=== PATIENT | female | born 1960 | race Caucasian/White ===

== ENCOUNTER → 2020-08-04 10:29 | Outpatient (BNVA) | payer OTHER, SELFPAY | PROVIDERS: PCP Internal Medicine Endocrinology, Diabetes & Metabolism; Referring Provider Internal Medicine Endocrinology, Diabetes & Metabolism; Visit Provider Surgery | DX: Z76.89 Persons encountering health services in other specified circumstances (principal) ==

== ENCOUNTER 2021-03-09 13:18 | Outpatient (REF) | payer OTHER, SELFPAY ==
[2021-03-09 14:03] LABS: Blood Urea Nitrogen 15 mg/dL (9-16); Estimated Glomerular Filt Rate 58
== END 2021-03-09 13:19 | disposition home or self-care (01) ==
LOC: HO.MRI 13:18
PROVIDERS: PCP Internal Medicine Endocrinology, Diabetes & Metabolism; Visit Provider Surgery
DX: Z01.812 Encounter for preprocedural laboratory examination (principal); Z80.3 Family history of malignant neoplasm of breast
CPT/HCPCS: 36415; 82565; 84520

== ENCOUNTER → 2021-08-17 09:03 | Outpatient (BNVA) | payer OTHER, SELFPAY | PROVIDERS: PCP Internal Medicine Endocrinology, Diabetes & Metabolism; Visit Provider Surgery ==

== ENCOUNTER → 2021-08-26 10:21 | Outpatient (BNVA) | payer OTHER, SELFPAY | PROVIDERS: PCP Internal Medicine Endocrinology, Diabetes & Metabolism; Visit Provider Surgery ==

== ENCOUNTER → 2021-10-14 10:31 | Outpatient (BNVA) | payer OTHER, SELFPAY | PROVIDERS: PCP Internal Medicine Endocrinology, Diabetes & Metabolism; Visit Provider Surgery ==

== ENCOUNTER → 2021-12-16 14:07 | Outpatient (BNVA) | payer OTHER, SELFPAY | PROVIDERS: PCP Internal Medicine Endocrinology, Diabetes & Metabolism; Visit Provider Surgery | DX: Z13.89 Encounter for screening for other disorder (principal) ==

== ENCOUNTER → 2022-08-18 10:05 | Outpatient (BNVA) | payer OTHER, SELFPAY | PROVIDERS: PCP Internal Medicine Endocrinology, Diabetes & Metabolism; Visit Provider Surgery | DX: Z80.3 Family history of malignant neoplasm of breast (principal) ==

== ENCOUNTER 2023-08-25 11:16 | Outpatient (AMB) | payer OTHER, SELFPAY ==
--- NOTE | 2023-08-25 11:35 | MHC.OFFVIS ---
Intake Vital Signs 08/25/23 11:36 Height 5 ft 9 in Weight 283 lb BMI 41.8 BP 140/80 H Blood Pressure Location Lt brachial Position Sitting Pulse 64 Intake Visit Reasons: Yearly breast examination Intake Note: Patient is seen in office for yearly breast exam. Pt c/o: denies any concerns regarding the breast mm:08/18/23 Private Advisor Required: No Accompanied by: Self / Same As Patient Allergies Biaxin Allergy (Unknown, Uncoded 08/18/22 10:19) Vomiting HPI HPI Comments History of Present Illness Details 63-year-old female patient previous patient of Dr. Fletcher and Dr. Mendez or felt to be high risk for breast cancer due to a strong [facility] calculated at 28%. 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 Her family history is significant for her mother developing breast cancer the age of 69, and maternal aunt at the age of 59, and a paternal aunt at the age of 50. Her last mammogram performed [facility] on 10/07/2022 revealed no mammographic evidence of malignancy (BI-RADS 2). Breast MRI on 08/18/2023 ([place]) revealed no MR specific evidence of malignancy (BI-RADS 2). She denies any new breast symptoms. [facility] Medical History Family history of breast cancer Diabetes mellitus type 1 GERD (gastroesophageal reflux disease) Thyroid disease Hypercholesterolemia Surgical History History of appendectomy History of right breast biopsy History of hysterectomy History of bilateral knee arthroplasty Family History Mother Lung cancer Breast cancer Throat cancer Maternal Grandfather Lung cancer Paternal Aunt Breast cancer Maternal Aunt Breast cancer Maternal Aunt Breast cancer Social History Alcohol intake: current Alcohol intake frequency: holidays/special occasions only Patient Tobacco Use Status: Never used Tobacco Female Reproductive History Menstrual Age of Menarche: 11 Review of Systems Const Denies chills, Denies fever(s), Denies headache(s) and Denies poor appetite ENT Denies dizziness and Denies headache(s) Card Denies chest pain, Denies rapid heart rate, Denies palpitations and Denies slow heart rate Resp Denies chest congestion, Denies cough, Denies pain on inspiration and Denies wheezing GI Denies abdominal pain, Denies bloating, Denies change in stool character, Denies constipation, Denies diarrhea, Denies nausea, Denies vomiting and Denies hematemesis Denies nipple discharge Musc Denies back pain, Denies arthralgias, Denies joint swelling and Denies numbness Skin/Breast Denies breast skin changes, Denies breast pain, Denies breast mass, Denies change in breast shape, Denies change in pigmentation, Denies nipple discharge, Denies erythema and Denies rash Neuro Denies dizziness, Denies headache(s) and Denies numbness Psych Denies anxiety and Denies depression Endo Denies palpitations Carlos A/Lymph Denies easy bleeding, Denies easy bruising and Denies lymphadenopathy Aller/Immun Denies wheezing Physical Exam Const General: cooperative, no acute distress and well developed Nutritional Appearance: well nourished Orientation/consciousness: patient oriented x3 Limitations: no limitations HEENT Head: Yes normocephalic and Yes atraumatic Ears: hearing grossly normal bilaterally Neck Neck: Yes no lymphadenopathy, Yes trachea midline and Yes supple Chest Other: Left breast:? No skin change, no nipple retraction, no nipple discharge, no palpable mass, no enlarged lymph nodes. Right breast:? No skin change, no nipple retraction, no nipple discharge, no palpable mass, no enlarged lymph nodes Resp Effort & Inspection: normal respiratory effort Auscultation: clear to auscultation bilaterally GI Inspection: Yes normal to inspection Skin General skin exam: no rashes or lesions noted Neuro General: patient oriented x3 Extrem General: Yes no clubbing, cyanosis or edema Assessment & Plan Assessment & Plan (1) Family history of breast cancer: Code(s): Z80.3 - Family history of malignant neoplasm of breast Plan 63-year-old female patient with a strong family history of breast cancer and elevated Tyrer-Cuzick remaining lifetime risk of breast cancer, continues to be followed as part of the high risk breast cancer protocol. Examination today revealed no suspicious findings in either breast. Her most recent mammogram and breast MRIs revealed no suspicious findings as well. 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 She will follow-up with the [facility] family cancer risk program. I have asked her to return in 6 months for follow-up breast examination. She should call sooner for any new concerns. Coding Level of Care Code Est Pt Level 3 (50226) Diagnoses Family history of breast cancer Z80.3
[2023-08-25 11:36] VITALS: BP 140/80; PULSE 64; BMI 41.8
== END 2023-08-25 11:54 | disposition home or self-care (01) ==
PROVIDERS: PCP Internal Medicine Endocrinology, Diabetes & Metabolism; Visit Provider Surgery
DX: Z80.3 Family history of malignant neoplasm of breast (principal)
CPT/HCPCS: 99213

== ENCOUNTER → 2023-08-25 11:16 | Outpatient (BNVA) | payer OTHER, SELFPAY | PROVIDERS: PCP Internal Medicine Endocrinology, Diabetes & Metabolism; Visit Provider Surgery ==

== ENCOUNTER 2024-03-05 11:48 | Outpatient (AMB) | payer OTHER, SELFPAY ==
--- NOTE | 2024-03-05 11:48 | A.OFFVIS_ITS ---
Vital Signs 03/05/24 11:54 Height 5 ft 9 in Weight 277 lb BMI 40.9 BP 170/80 H Blood Pressure Location Lt radial Position Sitting Pulse 60 Intake Visit Reasons: 6 month follow-up breast exam Intake Note: Pt is seen in office for 6 month follow up visit, breast exam. Pt c/o: denies any concenrs mm: 01/12/24 Mapping Supervisor Required: No Cableway Operator: Cableway Operator Present Accompanied by: Self / Same As Patient Allergies Biaxin Allergy (Unknown, Uncoded 08/18/22 10:19) Vomiting Medication List - Last Reconciled 03/05/24 by Alex Maya MD albuterol sulfate 90 mcg/actuation inhalation aspirin (Adult Low Dose Aspirin) 81 mg PO DAILY atorvastatin 10 mg PO BEDTIME beclomethasone dipropionate 80 mcg/actuation inhalation blood sugar diagnostic As directed cholecalciferol (vitamin D3) 25 mcg PO DAILY furosemide 20 mg PO DAILY insulin lispro 70 units subcut DAILY insulin syringe-needle U-100 As directed levothyroxine 112 mcg PO DAILY lisinopril 10 mg PO DAILY metoprolol succinate ER 50 mg PO DAILY omeprazole 40 mg PO DAILY venlafaxine ER 37.5 mg PO QAM HPI Comments Details: 64-year-old female patient previous patient of Dr. Fletcher and Dr. Mendez or felt to be high risk for breast cancer due to a strong family history with a Tyrer-Cuzick lifetime risk of breast cancer calculated at 28%. 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 Her family history is significant for her mother developing breast cancer the age of 69, and maternal aunt at the age of 59, and a paternal aunt at the age of 50. Her last mammogram 01/12/2024 revealed no mammographic evidence of malignancy (BI-RADS 1). Her last MRI performed on 08/18/2023 revealed no MR specific evidence of malignancy (BI- RADS 2). She will be due for an annual breast MRI in July of 2024 ([place]). She denies any new breast symptoms. [facility] Medical History Family history of breast cancer Diabetes mellitus type 1 GERD (gastroesophageal reflux disease) Thyroid disease Hypercholesterolemia Surgical History History of appendectomy History of right breast biopsy History of hysterectomy History of bilateral knee arthroplasty Family History Mother Lung cancer Breast cancer Throat cancer Maternal Grandfather Lung cancer Paternal Aunt Breast cancer Maternal Aunt Breast cancer Maternal Aunt Breast cancer Social History Alcohol intake: current Alcohol intake frequency: holidays/special occasions only Patient Tobacco Use Status: Never used Tobacco Female Reproductive History Menstrual Age of Menarche: 11 Review of Systems Const Denies chills, Denies fever(s), Denies headache(s) and Denies poor appetite ENT Denies dizziness and Denies headache(s) Card Denies chest pain, Denies rapid heart rate, Denies palpitations and Denies slow heart rate Resp Denies chest congestion, Denies cough, Denies pain on inspiration and Denies wheezing GI Denies abdominal pain, Denies bloating, Denies change in stool character, Denies constipation, Denies diarrhea, Denies nausea, Denies vomiting and Denies hematemesis Denies nipple discharge Musc Denies back pain, Denies arthralgias, Denies joint swelling and Denies numbness Skin/Breast Denies breast skin changes, Denies breast pain, Denies breast mass, Denies change in breast shape, Denies change in pigmentation, Denies nipple discharge, Denies erythema and Denies rash Neuro Denies dizziness, Denies headache(s) and Denies numbness Psych Denies anxiety and Denies depression Endo Denies palpitations Carlos A/Lymph Denies easy bleeding, Denies easy bruising and Denies lymphadenopathy Aller/Immun Denies wheezing Physical Exam Const General: cooperative, no acute distress and well developed Nutritional Appearance: well nourished Orientation/consciousness: patient oriented x3 Limitations: no limitations HEENT Head: Yes normocephalic and Yes atraumatic Ears: hearing grossly normal bilaterally Neck Neck: Yes no lymphadenopathy, Yes trachea midline and Yes supple Chest Other: Left breast:? No skin change, no nipple retraction, no nipple discharge, no palpable mass, no enlarged lymph nodes. Right breast:? No skin change, no nipple retraction, no nipple discharge, no palpable mass, no enlarged lymph nodes Resp Effort & Inspection: normal respiratory effort Auscultation: clear to auscultation bilaterally GI Inspection: Yes normal to inspection Skin General skin exam: no rashes or lesions noted Neuro General: patient oriented x3 Extrem General: Yes no clubbing, cyanosis or edema Assessment & Plan Assessment & Plan (1) Family history of breast cancer: Code(s): Z80.3 - Family history of malignant neoplasm of breast Category: Medical Plan 64-year-old female patient with a strong family history of breast cancer and elevated Tyrer-Cuzick remaining lifetime risk of breast cancer, continues to be followed as part of the high risk breast cancer protocol. Examination today revealed no suspicious findings in either breast. Her most recent mammogram and breast MRIs revealed no suspicious findings as well. 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 I have asked her to return in 6 months for follow-up breast examination. She should call sooner for any new concerns. Coding Level of Care Code Est Pt Level 3 (97510) Diagnoses Family history of breast cancer Z80.3
[2024-03-05 11:54] VITALS: BP 170/80; PULSE 60; BMI 40.9
== END 2024-03-05 12:34 | disposition home or self-care (01) ==
PROVIDERS: PCP Internal Medicine Endocrinology, Diabetes & Metabolism; Visit Provider Surgery
DX: Z80.3 Family history of malignant neoplasm of breast (principal)
CPT/HCPCS: 99213

== ENCOUNTER → 2024-03-05 11:48 | Outpatient (BNVA) | payer OTHER, SELFPAY | PROVIDERS: PCP Internal Medicine Endocrinology, Diabetes & Metabolism; Visit Provider Surgery ==

== ENCOUNTER 2024-11-19 13:36 | Outpatient (AMB) | payer OTHER, SELFPAY ==
[2024-11-19 13:38] VITALS: BP 134/64; PULSE 67; O2SAT 97; BMI 38.9
--- NOTE | 2024-11-19 13:38 | A.OFFVIS_ITS ---
Vital Signs 11/19/24 13:38 Height 5 ft 9 in Weight 263 lb 3.711 oz BMI 38.9 BP 134/64 Blood Pressure Location Lt brachial Position Sitting Pulse 67 Pulse Source Pulse Oximeter Pulse Oximetry (%) 97 Oxygen Delivery Method Room Air Intake Visit Reasons: overdue 6 month Breast exam appt Intake Note: Patient is seen in office for breast exam. Pt cc:None mm:01/11/25 Allergies Biaxin Allergy (Unknown, Uncoded 11/19/24 13:40) Vomiting HPI Comments Details: 64-year-old female patient previous patient of Dr. Fletcher and Dr. Mendez or felt to be high risk for breast cancer due to a strong family history with a Tyrer-zick lifetime risk of breast cancer calculated at 28%. 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 Her family history is significant for her mother developing breast cancer the age of 69, and maternal aunt at the age of 59, and a paternal aunt at the age of 50. 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 Her last mammogram 01/12/2024 revealed no mammographic evidence of malignancy (BI-RADS 1). Her last MRI performed on 08/18/2023 revealed no MR specific evidence of malignancy (BI-RADS 2). She denies any new breast symptoms. [facility] Medical History Family history of breast cancer Diabetes mellitus type 1 GERD (gastroesophageal reflux disease) Thyroid disease Hypercholesterolemia Surgical History History of appendectomy History of right breast biopsy History of hysterectomy History of bilateral knee arthroplasty Family History Mother Lung cancer Breast cancer Throat cancer Maternal Grandfather Lung cancer Paternal Aunt Breast cancer Maternal Aunt Breast cancer Maternal Aunt Breast cancer Social History Alcohol intake: current Alcohol intake frequency: holidays/special occasions only Patient Tobacco Use Status: Never used Tobacco Female Reproductive History Menstrual Age of Menarche: 11 Review of Systems Const Denies chills, Denies fever(s), Denies headache(s) and Denies poor appetite ENT Denies dizziness and Denies headache(s) Card Denies chest pain, Denies rapid heart rate, Denies palpitations and Denies slow heart rate Resp Denies chest congestion, Denies cough, Denies pain on inspiration and Denies wheezing GI Denies abdominal pain, Denies bloating, Denies change in stool character, Denies constipation, Denies diarrhea, Denies nausea, Denies vomiting and Denies hematemesis Denies nipple discharge Musc Denies back pain, Denies arthralgias, Denies joint swelling and Denies numbness Skin/Breast Denies breast skin changes, Denies breast pain, Denies breast mass, Denies change in breast shape, Denies change in pigmentation, Denies nipple discharge, Denies erythema and Denies rash Neuro Denies dizziness, Denies headache(s) and Denies numbness Psych Denies anxiety and Denies depression Endo Denies palpitations Carlos A/Lymph Denies easy bleeding, Denies easy bruising and Denies lymphadenopathy Aller/Immun Denies wheezing Physical Exam Const General: cooperative, no acute distress and well developed Nutritional Appearance: well nourished Orientation/consciousness: patient oriented x3 Limitations: no limitations HEENT Head: Yes normocephalic and Yes atraumatic Ears: hearing grossly normal bilaterally Neck Neck: Yes no lymphadenopathy, Yes trachea midline and Yes supple Chest Other: Left breast:? No skin change, no nipple retraction, no nipple discharge, no palpable mass, no enlarged lymph nodes. Right breast:? No skin change, no nipple retraction, no nipple discharge, no palpable mass, no enlarged lymph nodes Resp Effort & Inspection: normal respiratory effort Auscultation: clear to auscultation bilaterally GI Inspection: Yes normal to inspection Skin General skin exam: no rashes or lesions noted Neuro General: patient oriented x3 Extrem General: Yes no clubbing, cyanosis or edema Assessment & Plan Assessment & Plan (1) Family history of breast cancer: Code(s): Z80.3 - Family history of malignant neoplasm of breast Category: Medical Plan 64-year-old female patient with a strong family history of breast cancer and elevated Tyrer-Cuzick remaining lifetime risk of breast cancer, continues to be followed as part of the high risk breast cancer protocol. Examination today revealed no suspicious findings in either breast. Her most recent mammogram and breast MRIs revealed no suspicious findings as well. 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 I recommended obtaining a breast MRI now. I have asked her to return in 6 months for follow-up breast examination. She should call sooner for any new concerns. Orders: Orders MR breast BI wo/w con Today Z15.01 - Genetic susceptibility to malignant neop lasm of breast, Z15.09 - Genetic susceptibility to other malignant neoplasm, Z91.89 - Other specified personal risk factors, not elsewhere classified Coding Level of Care Code Est Pt Level 3 (02092) Diagnoses Family history of breast cancer Z80.3
--- OUTSIDE RECORDS SUMMARY | 2024-11-19 16:11 | XMS_ITS | Encounter Summary ---
Author Organization [facility] Address [address] [place] [address] Care Team Providers Care Typewriter Mechanic Name Role Phone Jeremi Hubbard MD Primary Care Provider [phone] Reason for Visit * Reason Onset Date Comments visit notes 11/18/2024 Encounter Details Date Type Department Care Team ([facility] st Contact Info) Description 11/18/2024 Telephone [facility] - [facility] [address] [facility] [address] [place] [id number] Teri Mosher MD [address] [place], [place] [id number] visit notes Social History Tobacco Use Types Packs/Day Years Used Date Smoking Tobacco: Never Smokeless Tobacco: Never Alcohol Use Standard Drinks/Week Comments Yes 0 (1 standard drink = 0.6 oz pur e alcohol) Comments Unknown Sex and Gender Information Value Date Recorded Sex Assigned at Not on file Legal Sex Female 2:58 PM EST Gender Identity Not on file Sexual Orientation Not on file documented as of this encounter Progress Notes * Valentin Weaver - 11/18/2024 2:54 PM EDT Flor from [facility] called today to request the results of the patients 11/12/24 stress test be faxed over to [phone]. If there are any questions please call Flor back at [phone] . documented in this encounter Plan of Treatment Upcoming Encounters Date Type Department Care Team (Late st Contact Info) Description 04/17/2025 3:30 PM EDT Office Visit [facility] - [facility] [address] [facility] [address] [place] [phone] Teri Mosher MD [address] [place] [address] documented as of this encounter Visit Diagnoses Not on filedocumented in this encounter Care Teams Typewriter Mechanic Relationship Specialty Start Date End Date Jeremi Hubbard MD [address] [place] [address] Dr [address] [place] [phone] PCP - General Endocrinology 11/18/13 documented as of this encounter
--- OUTSIDE RECORDS SUMMARY | 2024-11-19 16:11 | XMS_ITS | Clinical Summary ---
Author Organization [address] [place] [address] Address [address] [place] [address] Phone Care Team Providers Care Agricultural Chemicals Inspector Name Role Phone Jeremi Hubbard MD Primary Care Provider [phone] Allergies Active Allergy Reactions Criticality Noted Date Comments Clarithromycin 10/17/2022 Medications insulin NPH-insulin regular (HumuLIN 70/30 U-100 Insulin) 100 unit/mL (70-30) injection Inject into the skin daily. Active atorvastatin (LIPITOR) 40 mg tablet Take 1 Tablet by mouth daily. Active levothyroxine (SYNTHROID, LEVOTHROID) 112 mcg tablet 112 mcg daily. Active lisinopriL (PRINIVIL,ZESTRI L) 10 mg tablet Take 10 mg by mouth daily. Active furosemide (LASIX) 20 mg tablet Take 20 mg by mouth daily. Active metoprolol succinate (TOPROL-XL) 50 mg 24 hr tablet Take 50 mg by mouth daily. Active omeprazole (PriLOSEC) [address] capsule Take 40 mg by mouth daily. Active venlafaxine (EFFEXOR) 75 mg tablet Take 75 mg by mouth daily. Active aspirin 81 mg chewable tablet Take 81 mg by mouth daily. Active cholecalciferol (VITAMIN D-3) 25 mcg (1,000 unit) capsule Take by mouth. Active Hospital, Clinic, or Other Facility Administered Medication Ordered Dose Route Frequency Start Date End Date Status perflutren lipid microsphere (DEFINITY) 1.3 mL in sodium chloride 0.9% 8.7 mL injection 10 mL IV Once in imaging 11/12/2024 11/12/2024 End ed Active Problems Problem Noted Date Diagnosed Date CAD (coronary artery disease) 10/17/2022 Overview (10/17/2024): - Presumed diagnosis based on stress testing - Exercise nuclear stress test performed on 12/21/2021: Patient exercised for 5 minutes to 93% of max predicted heart rate with dyspnea but no chest pain, there were 1.5 to [address] depressions in the inferolateral leads during peak stress improving in late recovery, nuclear images showed small, mild ischemia at the basal lateral wall Last Assessment & Plan: Continue medical management of coronary atherosclerosis with secondary prevention agents atorvastatin 40 mg at bedtime and aspirin 81 mg daily; continue current metoprolol 50 mg daily; see further plans above. Hyperlipidemia 02/22/2022 Overview (10/17/2024): DX:Hyperlipidemia Last Assessment & Plan: I did review her lipid profile with her from October 2021. The total cholesterol is 154. The triglycerides were 104 with an HDL 62 and LDL 71. I am going to repeat her lipids. Hypertension 02/22/2022 Overview (10/17/2024): Last Assessment & Plan: Well-controlled on current regimen of lisinopril, furosemide, metoprolol, continue Shortness of breath on exertion 11/10/2021 Overview (10/17/2024): - See results of most recent echocardiogram and stress test under CAD section Last Assessment & Plan: Has had 8 to 9 months subacute onset of ongoing dyspnea on exertion symptoms. Differential includes deconditioning and obesity versus angina versus exertional HFpEF versus a combination of all of the above. My suspicion is that HFpEF with exertion may be playing a significant role in light of her risk factors. That said, in light of her positive stress test, I cannot fully rule out coronary disease as a cause. I would like to ultimately set her up for an exercise limited stress echocardiogram on her current medications to symptom limitation. I am looking not only for wall motion abnormalities but pre and post PA systolic pressures to see if they rise significantly. While there is no specific therapy that works in every patient for this condition, there are certain medications that have been proven beneficial with this condition-specifically SGLT2 inhibitors with HFpEF in general, possibly Entresto, possibly spironolactone. Alternatively, she may need an adjustment in her diuretic therapy. However, I would like to wait until she has completely recovered from COVID-19 before having her do a stress test. I have given her my card and asked her to call our office when she feels as though she is ready to get the stress test. In the meantime, she is already on secondary prevention agents as detailed below. Continue current low-dose Lasix 20 mg daily. Snoring 11/10/2021 Overview (10/17/2024): Last Assessment & Plan: She does snore and I like to have her get a sleep test to see if there is sleep apnea. Encounters Date Type Department Care Team Description 11/18/2024 Telephone [facility] Cardiology [facility] [address] [place] [address] Teri Mosher MD visit notes 11/12/2024 1:30 PM EDT Ancillary Procedure [facility] Cardiology [facility] [address] [place] [address] Dyspnea on exertion 10/10/2024 Telephone [facility] Cardiology [facility] [address] [place] [address] Teri Mosher MD from Last 3 Months Medical History Medical History Date Comments Diabetes mellitus type 2, co ntrolled, with complications ([facility]) DX:Diabetes mellitus type 2, controlled, with complications ([facility]) Family history of cardiovasc ular disease DX:Family history of cardiov ascular disease Essential hypertension DX:Essent ial hypertension Hyperlipidemia 02/22/2022 DX:Hyperlipidemi a Family History Medical History Relation Name Comments Other: valve replacement Father Relation Name Status Comments Father Social History Tobacco Use Types Packs/Day Years Used Date Smoking Tobacco: Never Smokeless Tobacco: Never Alcohol Use Standard Drinks/Week Comments Yes 0 (1 standard drink = 0.6 oz pur e alcohol) Comments Unknown Sex and Gender Information Value Date Recorded Sex Assigned at Not on file Legal Sex Female 2:58 PM EST Gender Identity Not on file Sexual Orientation Not on file Obstetrics History Last Filed Vital Signs Vital Sign Reading Time Taken Comments Blood Pressure 110/70 11/12/2024 1:36 PM EDT Pulse 68 01/01/2024 2:15 PM EDT Temperature - - Respiratory Rate - - Oxygen Saturation - - Inhaled Oxygen Concentration - - Weight 126 kg (278 lb) 11/12/2024 1:36 PM EDT Height 175.3 cm (5' 9 ) 11/12/2024 1:36 PM EDT Body Mass Index 41.05 11/12/2024 1:36 PM EDT Plan of Treatment Upcoming Encounters Date Type Department Care Team (Late st Contact Info) Description 04/17/2025 3:30 PM EDT Office Visit [facility] [address] [facility] [address] [place] [phone] Teri Mosher MD [address] [place] [address] Health Maintenance Due Date Last Done Comments Breast Cancer Screening 1960 DTaP,Tdap,and Td Vaccines (1 - Tdap) 02/17/1979 Cervical Cancer Screening: Pap Smear 02/17/1981 Pneumococcal Vaccine: 50+ Years (1 of 1 - PCV) 02/17/2010 Zoster Vaccines (1 of 2) 02/17/2010 RSV Immunization Patients 60+ Years Old (1 - Risk 60-74 years 1-dose series) 2020 Cholesterol Screening (Lipid Panel) 07/30/2022 Colorectal Cancer Screening: Colonoscopy 07/30/2022 Depression Screening 07/30/2022 HIV Screening 07/30/2022 Hepatitis C Screening 07/30/2022 Social Influencers of Health Screening 07/30/2022 Hypertension/CHF/CAD Annual BMP Blood Test 07/31/2022 COVID-19 Vaccine Completed 06/10/2024, , 06/24/2021, Additional history exists Influenza Vaccine Completed 06/10/2024, , 06/10/2021 HIB Vaccines Aged Out No longer eligi ble based on patient's age to complete this topic HPV Vaccines Aged Out No longer eligi ble based on patient's age to complete this topic Hepatitis A Vaccines Aged Out No long er eligible based on patient's age to complete this topic Hepatitis B Vaccines Aged Out No long er eligible based on patient's age to complete this topic IPV Vaccines Aged Out No longer eligi ble based on patient's age to complete this topic MMR Vaccines Aged Out No longer eligi ble based on patient's age to complete this topic Meningococcal ACWY Vaccine Aged Out N o longer eligible based on patient's age to complete this topic Meningococcal B Vacine Aged Out No lo nger eligible based on patient's age to complete this topic Pneumococcal Vaccine: Pediatrics (0 to 5 Years) and At-Risk Patients (6 to 64 Years) Aged Out No longer eligible based on patient's age to complete this topic RSV Immunization Patients Under 20 months Aged Out No longer eligible based on patient's age to complete this topic Varicella Vaccines Aged Out No longer eligible based on patient's age to complete this topic Procedures Procedure Name Priority Date/Time Associated Diagnosis Comments STRESS ECHOCARDIOGRAM EXERCISE WITH CONTRAST Routine 11/12/2024 2:35 PM EDT Dyspnea on exertion Procedure Note - Teri Mosher MD / Jocelyn Floyd PA - 11/12/2024 2:35 PM EDTThis note is in progress. ? ? Exercise stress test was performed. Exercise capacity was belowaverage. Normal blood pressure response. ? ? Stress: Overall, the patient's exercise capacity was below average.Total stress time was 4 min and 3 sec. The test was stopped because thepatient experienced shortness of breath. The patient requested the test sirisha stopped. The patient reported dyspnea during the stress test. No chestpain. Dyspnea resolved quickly in recovery. ? ? EC- 1.[address] depression in the inferolateral leadsoccuring in the setting of very mild baseline abnormality but suspiciousfor ischemia. Findings IVC/SVC Inferior vena cava structure is normal. RA pressures is estimated to be 3 mmHg (IVC diameter <21 mm and decreases >50% during inspiration). Tricuspid Valve The leaflets exhibit normal excursion. There is trace regurgitation. The RVSP is estimated at 47 mmHg post exercise. Study Details Overall the study quality was technically difficult. Definity contrast was given to enhance imaging. Study was difficult due to: poor endocardial visualization. Stress Findings A Christo protocol stress test was performed. Overall, the patient's exercise capacity was below average. Total stress time was 4 min and 3 sec. The test was stopped because the patient experienced shortness of breath. The patient requested the test to be stopped. The patient's hemodynamic response was adequate for diagnosis. Blood pressure demonstrated a normal response. Heart rate demonstrated a normal response. The patient reported dyspnea during the stress test. No chest pain. Dyspnea resolved quickly in recovery. ECG 64 yo female with BOLANOS, presumed CAD with mildly abnormal stress test in 2021. Hx HPL and HTN. R/O ischemia. The ECG shows normal sinus rhythm with mild inferolateral ST abnormality. 1- 1.[address] depression in the inferolateral leads occuring in the setting of very mild baseline abnormality but suspicious for ischemia. Arrhythmias during recovery: occasional premature atrial contractions (PACs), occasional premature ventricular contractions (PVCs). from Last [address] [facility] Care Teams Agricultural Chemicals Inspector Relationship Specialty Start Date End Date Jeremi Hubbard MD [address] [place] [address] [address] [place] [address] PCP - General Endocrinology 11/18/13
--- OUTSIDE RECORDS SUMMARY | 2024-11-19 16:11 | XMS_ITS | Continuity of Care Document ---
Author Organization [facility] [address] [facility] [address] [place] [address] Phone [phone] Care Team Providers Care Stitch Burnisher Name Role Phone Jeremi Hubbard M.D. Care Team Information Re ceiver [phone] Problems Active Problems Provider Date Type 1 diabetes mellitus Jeremi Hubbard M.D. Onset: 03/01/2022 Hypothyroidism Jeremi Hubbard M.D. Onset: 0 03/01/2022 Depressive disorder Jeremi Hubbard M.D. Onse t: 03/01/2022 Hypertensive disorder Jeremi Hubbard M.D. On set: 03/01/2022 Asthma Jeremi Hubbard M.D. Onset: 0 03/01/2022 Hyperlipidemia Jeremi Hubbard M.D. Onset: 0 03/01/2022 Gastroesophageal reflux disease Jeremi cruz M.D. Onset: 03/01/2022 Social History Type Date Description Comments Sex Unknown Lives With Daughter ETOH Use Rarely consumes alcohol Tobacco Use Start: Unknown Patient has never smoked Smoking Status Reviewed: 07/17/24 Patient has never sm oked Allergies and adverse reactions Active Allergies Criticality Reaction Severity Comments Date Augmentin Unable to assess criticality 03/28/2022 Medications Active Medications SIG Qnty Indications Order ing Provider Date Wixela [id number]/Act Aerosol inhale 1 puff by mouth twice daily 3units Jeremi Hubbard M.D. 07/17/2024 Venlafaxine HCL ER75mg Caps ER 24HR 1 by mouth every day 30caps Jeremi Hubbard M.D. 05/29/2024 Venlafaxine HCL AL995tw Caps ER 24HR take 1 capsule by mouth once daily as directed for 90 days 90caps Jeremi Hubbard M.D. 04/09/2024 Eimabbr750Ssgp/ML Solution inject 70 units under the skin once daily with insulin pump. Dina No Substitution 70ml E10.9 Jeremi Hubbard M.D. 11/21/2023 Hydrocortisone2.5% Cream apply twice a day to affected area as needed 60gm Jeremi Hubbard M.D. 05/30/2023 Albuterol Sulfate VSI605(90Base) mcg/Act Aerosol inhale 2 Puffs By Mouth 4 Times Daily as Needed 8.5units Jeremi Hubbard M.D. 03/02/2022 Flovent [id number]/Act Aerosol 2 puffs twice a day 12gm Jeremi Hubbard M.D. 03/02/2022 Metoprolol Succinate ER50mg Tablets ER 24HR Take 1 Tablet By Mouth Daily 90tabs Jeremi Hubbard M.D. 01/27/2022 Bmerflqekl15qk Tablets Take 1 Tablet By Mouth Once Daily 90tabs Jeremi Hubbard M.D. 01/27/2022 Atorvastatin Pjkokxq15gk Tablets Take 1 Tablet By Mouth every Day AT Bedtime 90tasrinath Hubbard M.D. 01/27/2022 Cxxsblecfc34ac Tablets Take 1 Tablet By Mouth Once Daily as directed 90tabs Jeremi Hubbard M.D. 01/27/[address] Take 1 Capsule By Mouth Daily 90caps Jeremi Hubbard M.D. 01/27/2022 Levothyroxine [id number] Tablets Take 1 Tablet By Mouth Daily 90tabs Jeremi Hubbard M.D. 01/27/2022 History Medications Accu-Chek Guide TestStrips Use 1 Strip To Skin 4 times a day as Directed Dx: E10.9 600units Jeremi Hubbard M.D. 05/10/2024 - 07/17/2024 Acetic Acid2% Solution instill 3 Drops into Both ears Three Times Daily as needed 15units Jeremi Hubbard M.D. 04/09/2024 - 07/17/2024 Zithromax [id number] Tablets as directed 1tabs Jeremi devlin M.D. 01/01/2024 - 04/09/2024 Paxlovid (300/100)20X 150 mg & 10 X 100mg TBPK 3 tabs by mouth twice a day 1units Jeremi Hubbard M.D. 12/26/2023 - 04/09/2024 Vital Signs Date Vital Result Comment 07/17/2024 10:53am BP Systolic 120 mmHg BP Diastolic 70 mmHg Heart Rate 72 /min Height 67.5 inches 5'7.50 Weight 272.00 lb BMI (Body Mass Index) 42.0 kg/m2 Results Test Acquired Date Facility Test Result H/L Range Note Glucose Fingerstick 07/17/2024 Inhouse Glucose Fingerstick 160 Hemoglobin A1c 07/17/2024 Inhouse Hemoglobin A1c 7.0% Hemoglobin A1c 04/09/2024 Inhouse Hemoglobin A1c 6.9% Glucose Fingerstick 04/09/2024 Inhouse Glucose Fingerstick 209 Glucose Fingerstick 01/05/2024 Inhouse Glucose Fingerstick 175 Comprehensive Metabolic Panl 11/22/2023 [facility] Glucose 126 mg/dL High 70-99 BUN 17 mg/dL 8-27 Creatinine 1.00 mg/dL 0.57-1.00 eGFR 63 mL/min/1.73 >59 BUN/Creatinine Ratio 17 12-28 Sodium 142 mmol/L 134-144 Potassium 4.1 mmol/L 3.5-5.2 Chloride 104 mmol/L 96-106 Anion Gap 13.0 mmol/L 10.0-18.0 Carbon Dioxide, Total 25 mmol/L 20-29 Calcium 9.1 mg/dL 8.7-10.3 Protein, Total 5.8 g/dL Low 6.0-8.5 Albumin 3.8 g/dL Low 3.9-4.9 Globulin, Total 2.0 g/dL 1.5-4.5 A/G Ratio 1.9 1.2-2.2 Bilirubin, Total 0.4 mg/dL 0.0-1.2 Alkaline Phosphatase 123 IU/L High 44-121 Ast (Sgot) 18 IU/L 0-40 Alt (SGPT) 13 IU/L 0-32 Lipid Panel 11/22/2023 [facility] Cholesterol, Total 139 mg/dL 100-199 Triglycerides 85 mg/dL 0-149 HDL Cholesterol 62 mg/dL >39 VLDL Cholesterol Justin 16 mg/dL 5-40 LDL Chol Calc (Nih) 61 mg/dL 0-99 Non-HDL Cholesterol 77 mg/dL 0-129 Comment: TNP Urinalysis Complete 11/22/2023 [facility] Specific [place] 1.016 1.005-1.0 30 pH 6.5 5.0-7.5 Urine-Color Yellow Yellow Appearance Clear Clear WBC Esterase Trace Abnormal Negative Protein Negative Negative/ Trace Glucose Negative Negative Ketones Negative Negative Occult Blood Negative Negative Bilirubin Negative Negative Urobilinogen,Se mi-Qn 1.0 mg/dL 0.2-1.0 Nitrite, Urine Negative Negative Microscopic Examination See below: 1 Microscopic Examination TNP WBC 0-5 /hpf 0 - 5 RBC 0-2 /hpf 0 - 2 Epithelial Cells (non renal) 0-10 /hpf 0 - 10 Epithelial Cells (renal) TNP Casts None seen /lpf None seen Cast Type TNP Crystals TNP Crystal Type TNP Mucus Threads TNP Bacteria None seen None seen/Few Yeast TNP Trichomonas TNP Comment TNP Hemoglobin A1c 11/22/2023 [facility] Hemoglobin A1c 7.1 % High 4.8-5.6 2 Complete Abc With Diff 11/22/2023 [facility] WBC 4.5 x10E3/uL 3.4-10.8 RBC 4.27 x10E6/uL 3.77-5.28 Hemoglobin 12.2 g/dL 11.1-15.9 Hematocrit 37.1 % 34.0-46.6 MCV 87 fL 79-97 MCH 28.6 pg 26.6-33.0 MCHC 32.9 g/dL 31.5-35.7 RDW 12.5 % 11.7-15.4 Platelets 199 x10E3/uL 150-450 Neutrophils 68 % Not Estab. Lymphs 25 % Not Estab. Monocytes 7 % Not Estab. Eos 0 % Not Estab. Basos 0 % Not Estab. Immature Cells TNP Neutrophils (Absolute) 3.1 x10E3/uL 1.4-7.0 Lymphs (Absolute) 1.1 x10E3/uL 0.7-3.1 Monocytes(Absol [place]) 0.3 x10E3/uL 0.1-0.9 Eos (Absolute) 0.0 x10E3/uL 0.0-0.4 Baso (Absolute) 0.0 x10E3/uL 0.0-0.2 Immature Granulocytes 0 % Not Estab. Immature Grans (Abs) 0.0 x10E3/uL 0.0-0.1 NRBC TNP Hematology Comments: TNP TSH reflex to T4F 11/22/2023 [facility] TSH reflex to T4F 2.680 uIU/mL 0.450-4.5 00 Albumin/Creatin ine Ratio, Random Urine 11/22/2023 [facility] Creatinine, Urine 146.9 mg/dL Not Estab. Albumin, Urine 5.0 ug/mL Not Estab. Alb/Creat Ratio 3 mg/gcreat 0-29 3 Hemoglobin A1c 10/04/2023 Inhouse Hemoglobin A1c 7.2% Glucose Fingerstick 10/04/2023 Inhouse Glucose Fingerstick 194 Hemoglobin A1c 05/03/2023 Inhouse Hemoglobin A1c 8.0% Glucose Fingerstick 05/03/2023 Inhouse Glucose Fingerstick 154 Urinalysis Complete 10/31/2022 [facility] Appear/Color COLORLESS 4 SP. [place] 1.007 (1.002-1. 030) Urine PH 6.0 (5.0-8.0) Urine Albumin NEGATIVE (Neg) Urine Glucose NEGATIVE (Neg) Urine Ketones NEGATIVE (Neg) Urine Bilirubin NEGATIVE (Neg) Urine Hemoglobin NEGATIVE (Neg) Urine Nitrite NEGATIVE (Neg) Urine Leukocyte NEGATIVE (Neg) Urobilinogen NORMAL mg/dL (Norm) Urine WBCs <1 /HPF (0-5) Urine RBCs 1 /HPF (0-3) Mucus SLIGHT /LPF Squamous Epith <1 /HPF (0-8) Hyaline Cast 1 LPF (0-2) Urinary Microalbumin 10/31/2022 [facility] Micro-Albumin <12.0 mg/L (<20) 5 Malb/Creat Ratio Unable to calcul <SEE NOTE> MG/GM (0-20) 6 Urine Creat For Micro Albumin 22.1 mg/dL Comprehensive Metabolic Panl 10/31/2022 [facility] Glucose 124 mg/dL High (70-99) BUN 13 mg/dL (8-23) Creatinine 0.9 mg/dL (0.5-1.0) Sodium 142 mmol/L (133-145) Potassium 4.1 mmol/L (3.6-5.2) Chloride 105 mmol/L (98-107) Bicarbonate 29 mmol/L (22-29) Anion Gap 8 (4-17) Albumin 4.2 GM/DL (3.4-4.8) Calcium 9.5 mg/dL (8.6-10.5 ) Bilirubin,Total 0.3 mg/dL (0-1.2 ) Total Protein 6.4 GM/DL (6.2-8.2 ) Ag Ratio 1.9 Ast 18 U/L (0-32) Alk Phos 135 U/L High (35-104) Alt 17 U/L (0-33) Estimated GFR Creatinine 70 ML/MIN/1.73 M2 7 Culture Urine 10/31/2022 [facility] Specimen Description URINE Special Requests NONE Culture NO GROWTH Report Status FINAL 11/02/2022 8 Lipid Panel 10/31/2022 [facility] Cholesterol, Total 155 mg/dL (<200) Triglyceride 103 mg/dL (<150) HDL Chol 63 mg/dL (>39) LDL Cholesterol, Calculated 71 mg/dL (0-130) Non HDL Cholesterol (Calc) 92 mg/dL (<160) Hemoglobin A1c 10/31/2022 [facility] Hemoglobin A1c 7.2 % High (4.0-5.6) 9 TSH With Reflex To FT4 10/31/2022 [facility] TSH With Reflex To FT4 3.78 uIU/mL (0.4-4.2) Complete Abc With Diff 10/31/2022 [facility] WBC 5.9 K/MM3 (4.0-11.0 ) RBC 4.25 M/MM3 (4.20-5.4 0) HGB 12.0 GM/DL (11.7-15. 5) HCT 39.5 % (35.7-45. 8) MCV 92.9 FL (80.0-100 .0) MCH 28.2 pg (27.0-34. 0) MCHC 30.4 g/dL Low (33.0-37. 0) PLT 234 K/MM3 (150-460) RDW-SD 46.3 FL (<47.0) MPV 11.2 FL (9.4-12.4 ) Automated NRBC 0.0 #/100WBC'S Abs. NRBC 0.0 K/MM3 Neut # 4.0 K/MM3 (1.3-7.0) Lymph # 1.3 K/MM3 (0.8-3.1) Jerauld# 0.4 K/MM3 (0.4-0.9) Eo # 0.1 K/MM3 (0.0-0.4) Baso # 0.0 K/MM3 (0.0-0.1) Abs. Imm Gran 0.0 K/MM3 Neut 67.6 % (44-76) Lymph 22.2 % (15-43) Monocyte 7.0 % (4.5-10.5 ) Eo 2.2 % (0-6) Baso 0.7 % (0-2) Imm Gran 0.3 % Hemoglobin A1c 10/31/2022 Inhouse Hemoglobin A1c 7.4% Glucose Fingerstick 10/31/2022 Inhouse Glucose Fingerstick 172 Glucose Fingerstick 07/12/2022 Inhouse Glucose Fingerstick 161 Hemoglobin A1c 07/12/2022 Inhouse Hemoglobin A1c 7.4% Glucose Fingerstick 03/28/2022 Inhouse Glucose Fingerstick 199 Hemoglobin A1c 03/28/2022 Inhouse Hemoglobin A1c 7.4 1 Microscopic was zina cated and was performed. 2 Prediabetes: 5.7 - 6 .4 Diabetes: >6.4 Glycemic control for adults with diabetes: <7.0 3 Normal: 0 - 29 Moderately increased: 30 - 300 Severely increased: >300 4 CLEAR 5 The urine microalbum in test is designed to monitor renal function. When screening for Bence Garcia proteinuria, urine electrophoresis is recommended. 6 Unable to calculate 7 Creatinine based est imated glomerular filtration (eGFR) in adults is calculated using the National Kidney Foundation recommended 2020 CKD-EPI equation. Estimates GFR from serum creatinine, age and sex. 8 FINAL 11/02/2022 9 MONITORING: In known diabetic patients, hemoglobin A1c targets should be discussed with health care provider. DIAGNOSTIC USE: The [place] [employer] Association (ADA) and the World Health Organization (WHO) recommend the use of HbA1c to diagnose diabetes using a threshold of 6.5%. Patients who have an HbA1c between 5.7% and 6.4% are considered at increased risk for developing diabetes in the future. CAUTION: Falsely low HbA1c results may be observed in patients with hemolytic anemia, homozygous forms of abnormal hemoglobin (e.g. SS, CC, SC), , recent blood loss or hemoglobin F greater than 7%. Fructosamine may be used as an alternate test in these cases. REFERENCE: ADA: Standards of Medical Care in Diabetes 2020, The Journal of Clinical and Applied Research and Education Volume 43, Supplement 1 Procedures Date Code Description Status 07/17/2024 06299 Glucose Monitoring Interpeta tion And Report Completed 04/09/2024 31331 Glucose Monitoring Interpeta tion And Report Completed 01/05/2024 83122 Glucose Monitoring Interpeta tion And Report Completed 10/04/2023 01940 Glucose Monitoring Interpeta tion And Report Completed 05/03/2023 53450 Glucose Monitoring Interpeta tion And Report Completed 10/31/2022 76281 Glucose Monitoring Interpeta tion And Report Completed 03/28/2022 38602 Glucose Monitoring Interpeta tion And Report Completed Medical Devices Description No Information Available Encounters Type Date Location Provider Dx Diagnosis Office Visit 07/17/2024 10:45a Main Office Jeremi Hubbard M.D. E10.9 Type 1 diabetes mellitus without complications J45.909 Unspecified asthma, uncomplicated E03.9 Hypothyroidism, unsp ecified F32.A Depression, unspecif ied Assessments Date Code Description Provider 07/17/2024 E10.9 Type 1 diabetes mellitus without complications Jeremi Hubbard M.D. 07/17/2024 J45.909 Asthma Jeremi jackson M.D. 07/17/2024 E03.9 Hypothyroidism Jeremi devlin M.D. 07/17/2024 F32.A Mild depression Jeremi gutierrez M.D. Plan of Treatment Future Appointment(s):* 02/25/2025 2:30 pm - Jeremi Hubbard M.D. at Main Office 07/17/2024 - Jeremi Hubbard M.D.* E10.9 Type 1 diabetes mellitus without complications * J45.909 Asthma * E03.9 Hypothyroidism * F32.A Mild depression * * New Labs:* Comp. Metabolic Panel (14), Ordered: 07/17/24 * Lipid Panel, Ordered: 07/17/24 * Urinalysis, Complete, Ordered: 07/17/24 * Hemoglobin A1c, Ordered: 07/17/24 * Albumin/Creatinine Ratio, Random Urine, Ordered: 07/17/24 Functional Status Description No Information Available Mental Status Description No Information Available Referrals Refer to Dr Reason for Referral Status Appt Deandre e [facility] Stress Test Scheduled [address] [place] [address] [id number] [place] [id number] [phone] [facility] CORONARY ARTERY Closed 01/01/[address] [facility] [id number] [place] [phone] Kush Gonzalez M.D. TYPE 2 DIABETES Closed 12/21 [address] [facility] [address] [place] [address] [phone] [facility] Closed [address] [facility] [place] [address] [phone] [facility] Closed [address] [place] [address] [phone] Kush Gonzalez M.D. Closed 000 [address] [facility] [address] [place] [address] [phone] Anderson Waterman MD Closed [address] [facility] [address] [place] [address] [phone] [facility] RISK OF BREAST CANCER Closed [address], [address] [place] [address] [phone]
== END 2024-11-19 13:54 | disposition home or self-care (01) ==
LOC: HO.HGS 13:36
PROVIDERS: PCP Internal Medicine Endocrinology, Diabetes & Metabolism; Visit Provider Surgery
DX: Z80.3 Family history of malignant neoplasm of breast (principal)
CPT/HCPCS: 99213

== ENCOUNTER 2024-11-27 16:08 | Outpatient (REF) | payer OTHER, SELFPAY ==
--- NOTE | ~2024-11-27 | MR_ITS ---
EXAMINATION: MR BREAST WITHOUT AND WITH CONTRAST, BILATERAL CLINICAL INFORMATION: BRCA gene mutation. Strong family history of breast cancer including mother at age 68. High risk screening surveillance. COMPARISON: Prior imaging on PACS. TECHNIQUE: MR imaging of the breast was performed using T1, T2 and fat saturated techniques. Dynamic multiphase imaging was also performed after administration of intravenous gadolinium contrast agent. Computer generated 3-D reconstruction was generated. FINDINGS: There is scattered fibroglandular breast tissue with moderate background enhancement. LEFT BREAST: No suspicious enhancing masses or areas of nonmass enhancement. No architectural distortion. No internal mammary or axillary adenopathy. RIGHT BREAST: No suspicious enhancing masses or areas of nonmass enhancement. No architectural distortion. No internal mammary or axillary adenopathy. Limited views of the chest and abdomen are unremarkable. MR/MR breast BI wo/w con IMPRESSION: No MR evidence of malignancy bilateral breasts. ASSESSMENT: LEFT BREAST: BI-RADS 1-Negative RIGHT BREAST: BI-RADS 1-Negative RECOMMENDATIONS: Yearly MRI screening surveillance Yearly screening mammography. Electronically signed by: Christie Hayward DO 12/03/2024 04:41 PM EDT
--- OUTSIDE RECORDS SUMMARY | 2024-11-27 17:45 | XMS_ITS | Clinical Summary ---
Author Organization [address] [place] [address] Address [address] [place] [address] Phone Care Team Providers Care Strip Presser Name Role Phone Jeremi Hubbard MD Primary Care Provider [phone] Allergies Active Allergy Reactions Criticality Noted Date [...] Type Department Care Team Description 11/18/2024 Telephone [facility] [address] [place] [address] Teri Mosher MD visit notes 11/12/2024 1:30 PM EDT Ancillary Procedure [facility] [address] [place] [address] Dyspnea on exertion 10/10/2024 Telephone [facility] [address] [place] [address] Teri Mosher MD from Last 3 Months Medical History Medical History Date Comments Diabetes mellitus type 2, co ntrolled, with complications ([facility]) DX:Diabetes mellitus type 2, controlled, with complications ([facility]) Family history of cardiovasc ular disease DX:Family [...] Description 04/17/2025 3:30 PM EDT Office Visit [facility] [address] [facility] [address] [place] [id number] Teri Mosher MD [address] [place] [address] Health Maintenance Due Date Last Done Comments Breast Cancer Screening 1960 DTaP,Tdap,and Td Vaccines (1 - Tdap) 02/17/1979 Cervical Cancer Screening: Pap Smear 02/17/1981 Pneumococcal Vaccine: 50+ Years (1 of 1 - PCV) 02/17/2010 Zoster Vaccines (1 of 2) 02/17/2010 RSV Immunization Adult Patients (1 - Risk 60-74 years 1-dose series) [...] age to complete this topic Meningococcal B Vaccine Aged Out No l onger eligible based on patient's age to complete [...] 11/12/2024 2:35 PM EDT Dyspnea on exertion from Last 3 Months Results * STRESS ECHOCARDIOGRAM EXERCISE WITH CONTRAST (11/12/2024 2:35 PM EDT) IVSD 0.8 0.6 - 0.9 cm CV PACS STRESS LVIDD 4.9 3.8 - 5.2 cm CV PACS STRESS LVIDS 3.0 2.2 - 3.5 cm CV PACS STRESS LVPWD 0.8 0.6 - 0.9 cm CV PACS STRESS TR Peak Velocity 3.33 m/s CV PACS STRESS TR Peak Gradient 44 mmHg CV PACS STRESS Relative Wall Thickness ratio 0.33 CV PACS STRESS FS 39 % CV PACS STRESS LV Mass 2D 131 g CV PACS STRESS LVIDD Index 2.06 cm/m2 CV PACS STRESS LVIDS Index 1.26 cm/m2 CV PACS STRESS LV Mass Index 2D 55 g/m2 CV PACS STRESS BSA 2.48 m2 CV PACS STRESS Target HR 133 bpm CV PACS STRESS Right Ventricular Peak Systolic Pressure 47 mmHg CV PACS STRESS Est. RA Pressure 3 mmHg CV PACS STRESS Baseline HR 6 bpm CV PACS STRESS Baseline SBP 110 mmHg CV PACS STRESS Baseline DBP 70 mmHg CV PACS STRESS Peak HR 136 bpm CV PACS STRESS Peak SBP 140 mmHg CV PACS STRESS Peak DBP 70 mmHg CV PACS STRESS Estimated workload 6.5 METS CV PACS STRESS Rate Pressure Product 19,040.0 mmHg*bpm CV PACS STRESS Percent HR 87 % CV PACS STRESS Exercise/injecti on duration (min) 4 min CV PACS STRESS Exercise/injecti on duration (sec) 3 sec CV PACS STRESS Anatomical Region Laterality Modality Ultrasound Narrative 11/20/2024 5:12 PM EDT ?There was normal left ventricular size and systolic function on resting imaging. ??There was normal regional wall motion with an ejection fraction of 55 to 60%. ??Resting pulmonary artery systolic pressure was measured at 24 mmHg and was within normal limits. ?Stress ECG was non-diagnostic due to baseline ECG abnormalities. ?Exercise stress test was performed. ??Patient exercised for 4 minutes and 3 seconds achieving 87% of max predicted heart rate and a 6.5 MET workload. ??Exercise capacity was below average for age and gender. Normal heart rate and blood pressure response. The test was stopped because the patient experienced shortness of breath. The patient requested the test to be stopped. The patient reported dyspnea during the stress test. No chest pain. Dyspnea resolved quickly in recovery. ?ECG portion was nondiagnostic due to baseline abnormalities. ?All wall segments augmented normally with stress. ??The left ventricular cavity did not dilate with stress. Negative exercise stress echocardiogram at a diagnostic heart rate without evidence of ischemia or infarction. Left Ventricle Left ventricle cavity size is normal. Wall thickness is normal. Systolic function is normal with an ejection fraction of 55-60%. There are no regional LV wall motion abnormalities. Right Ventricle Right ventricle cavity appears normal. Systolic function is normal. IVC/SVC Inferior vena cava structure is normal. RA pressures is estimated to be 3 mmHg (IVC diameter <21 mm and decreases >50% during inspiration). Mitral Valve The leaflets exhibit normal excursion. Tricuspid Valve The leaflets exhibit normal excursion. There is trace regurgitation. The RVSP is estimated at 47 mmHg post exercise. This was increased from 24 mmHg at rest. Aortic Valve The leaflets exhibit normal excursion. Study Details Overall the study quality was technically difficult. Definity contrast was given to enhance imaging. Study was difficult due to: poor endocardial visualization. Stress Findings A Christo protocol stress test was performed. Overall, the patient's exercise capacity was below average for age and gender. Total stress time was 4 min and [...] sinus rhythm with mild inferolateral ST abnormality. There is exacerbation of baseline ST abnormality during stress. Arrhythmias during recovery: occasional premature atrial contractions (PACs), occasional premature ventricular contractions (PVCs). The result of the stress ECG was non-diagnostic for ischemia due to baseline ECG abnormalities. Echo Post Stress Left ventricular cavity size decreased from baseline. Left ventricular systolic function improved from baseline. Normal wall motion, unchanged from baseline. Nuclear Measurements The study is negative and shows no echocardiographic evidence of ischemia or infarction. Procedure Note Jocelyn Floyd PA / Teri Mosher MD - 11/20/2024 ? ? There was normal left ventricular size and systolic function on restingimaging. There was normal regional wall motion with an ejection fractionof 55 to 60%. Resting pulmonary artery systolic pressure was measured at24 mmHg and was within normal limits. ? ? Stress ECG was non-diagnostic due to baseline ECG abnormalities. ? ? Exercise stress test was performed. Patient exercised for 4 minutesand 3 seconds achieving 87% of max predicted heart rate and a 6.5 METworkload. Exercise capacity was below average for age and gender. Normalheart rate and blood pressure response. The test was stopped because thepatient experienced shortness of breath. The patient requested the test sirisha stopped. The patient reported dyspnea during the stress test. No chestpain. Dyspnea resolved quickly in recovery. ? ? ECG portion was nondiagnostic due to baseline abnormalities. ? ? All wall segments augmented normally with stress. The left ventricularcavity did not dilate with stress. Negative exercise stress echocardiogram at a diagnostic heart rate withoutevidence of ischemia or infarction. us Jocelyn COWAN CV ECHO PROCEDURES Final Resu lt from Last 3 Months Insurance [facility] Care Teams Strip Presser Relationship Specialty Start Date End Date Jeremi Hubbard MD [address] [place] [address] Dr [address] [place] [address] PCP - General Endocrinology 11/18/13
--- OUTSIDE RECORDS SUMMARY | 2024-11-27 17:45 | XMS_ITS | Continuity of Care Document ---
Author Organization [facility] [address] [place] [address] Phone [phone] Care Team Providers Care Mold Presser Name Role Phone Jeremi Hubbard M.D. Care Team Information Re ceiver [phone] Problems Active Problems Provider Date Type 1 [...] Qnty Indications Order ing Provider Date Wixela [id number]/Act Aerosol inhale 1 puff by mouth twice daily 3units Jeremi Hubbard M.D. 07/17/2024 Venlafaxine HCL ER75mg Caps ER 24HR 1 by mouth every day 30caps Jeremi Hubbard M.D. 05/29/2024 Venlafaxine HCL QT397hv Caps ER 24HR take 1 capsule by mouth once daily as directed for 90 days 90caps Jeremi Hubbard M.D. 04/09/2024 Spjfsfz048Isvq/ML Solution inject 70 units under the skin once daily with insulin pump. Dina No Substitution 70ml E10.9 Jeremi Hubbard M.D. 11/21/2023 Hydrocortisone2.5% Cream apply twice a day to affected area as needed 60gm Jeremi Hubbard M.D. 05/30/2023 Albuterol Sulfate MLS668(90Base) mcg/Act Aerosol inhale 2 Puffs By Mouth 4 Times Daily as Needed 8.5units Jeremi Hubbard M.D. 03/02/2022 Flovent YDZ693ryd/Act Aerosol 2 puffs twice a day 12gm Jeremi Hubbard M.D. 03/02/2022 Metoprolol Succinate ER50mg Tablets ER 24HR Take 1 Tablet By Mouth Daily 90tabs Jeremi Hubbard M.D. 01/27/2022 Thltgdhghw41rg Tablets Take 1 Tablet By Mouth Once Daily 90tabs Jeremi Hubbard M.D. 01/27/2022 Atorvastatin Wwnplvg38fw Tablets Take 1 Tablet By Mouth every Day AT Bedtime 90tasrinath Hubbard M.D. 01/27/2022 Leyonpstre44pg Tablets Take 1 Tablet By Mouth Once Daily as directed 90tabs Jeremi Hubbard M.D. 01/27/[address] Take 1 Capsule By Mouth Daily 90caps Jeremi Hubbard M.D. 01/27/2022 Levothyroxine Adobzd378ouu Tablets Take 1 Tablet By Mouth Daily 90tabs Jeremi Hubbard M.D. 01/27/2022 History Medications Accu-Chek Guide TestStrips Use 1 Strip To Skin 4 times a day as Directed Dx: E10.9 600units Jeremi Hubbard M.D. 05/10/2024 - 07/17/2024 Acetic Acid2% Solution instill 3 Drops into Both ears Three Times Daily as needed 15units Jeremi Hubbard M.D. 04/09/2024 - 07/17/2024 Zithromax Z-Wvo770lb Tablets as directed 1tabs Jeremi devlin M.D. [...] Comment: TNP Urinalysis Complete 11/22/2023 [facility] Specific Pansey 1.016 1.005-1.0 30 pH 6.5 5.0-7.5 Urine-Color [...] 1.4-7.0 Lymphs (Absolute) 1.1 x10E3/uL 0.7-3.1 Monocytes(Absol [place]) 0.3 x10E3/uL 0.1-0.9 Eos (Absolute) 0.0 x10E3/uL [...] Inhouse Glucose Fingerstick 154 Urinalysis Complete 10/31/2022 [facility] Appear/Color COLORLESS 4 SP. Pansey 1.007 (1.002-1. 030) Urine PH 6.0 (5.0-8.0) [...] Cast 1 LPF (0-2) Urinary Microalbumin 10/31/2022 [facility] Micro-Albumin <12.0 mg/L (<20) 5 Malb/Creat Ratio Unable to calcul <SEE NOTE> MG/GM (0-20) 6 Urine Creat For Micro Albumin 22.1 mg/dL Comprehensive Metabolic Panl 10/31/2022 [facility] Glucose 124 mg/dL High [...] 70 ML/MIN/1.73 M2 7 Culture Urine 10/31/2022 [facility] Specimen Description URINE Special Requests NONE Culture NO GROWTH Report Status FINAL 11/02/2022 8 Lipid Panel 10/31/2022 [facility] Cholesterol, Total 155 mg/dL (<200) Triglyceride 103 mg/dL (<150) HDL Chol 63 mg/dL (>39) LDL Cholesterol, Calculated 71 mg/dL (0-130) Non HDL Cholesterol (Calc) 92 mg/dL (<160) Hemoglobin A1c 10/31/2022 [facility] Hemoglobin A1c 7.2 % High (4.0-5.6) 9 TSH With Reflex To FT4 10/31/2022 [facility] TSH With Reflex To FT4 3.78 uIU/mL (0.4-4.2) Complete Abc With Diff 10/31/2022 [facility] WBC 5.9 K/MM3 (4.0-11.0 [...] K/MM3 (1.3-7.0) Lymph # 1.3 K/MM3 (0.8-3.1) [place]# 0.4 K/MM3 (0.4-0.9) Eo # 0.1 K/MM3 [...] with health care provider. DIAGNOSTIC USE: The [place] Diabetes [employer] (ADA) and the World Health [...] 1 Procedures Date Code Description Status 07/17/2024 92091 Glucose Monitoring Interpeta tion And Report Completed 04/09/2024 76725 Glucose Monitoring Interpeta tion And Report Completed 01/05/2024 69015 Glucose Monitoring Interpeta tion And Report Completed 10/04/2023 43705 Glucose Monitoring Interpeta tion And Report Completed 05/03/2023 24796 Glucose Monitoring Interpeta tion And Report Completed 10/31/2022 31880 Glucose Monitoring Interpeta tion And Report Completed 03/28/2022 96962 Glucose Monitoring Interpeta tion And Report Completed [...] Reason for Referral Status Appt Deandre e [facility] Stress Test Closed [address] [place] [address] [place] [address] [phone] [facility] CORONARY ARTERY Closed 01/01/2024 2 [facility] [address] [place] [address] [phone] Kush Gonzalez M.D. TYPE 2 DIABETES Closed 12/21 [address] [facility] [address] [place] [address] [phone] [facility] Closed [address] [facility], [address] [place] [address] [phone] [facility] Closed [address] [place] [address] [phone] Kush Gonzalez M.D. Closed 000 [address] [facility] [address] [place] [address] [phone] Anderson Waterman MD Closed [address] [facility] [address] [place] [address] [phone] [facility] RISK OF BREAST CANCER Closed [address] [place] [address] [phone]
--- OUTSIDE RECORDS SUMMARY | 2024-11-27 17:45 | XMS_ITS | Encounter Summary ---
Author Organization [facility] Address [address] [place] [address] Care Team Providers Care Barrel Maker Name Role Phone Jeremi Hubbard MD Primary Care Provider [phone] Reason for Visit * Reason Onset Date Comments visit notes 11/18/2024 Encounter Details Date Type Department Care Team ([facility] st Contact Info) Description 11/18/2024 Telephone [facility] - [facility] [address] [facility] [address] [place] [phone] Teri Mosher MD [address] [place], [place] [id number] visit notes Social History Tobacco Use Types [...] 11/12/24 stress test be faxed over to [phone]. If there are any questions please call Flor back at [phone] . documented in this encounter Plan of Treatment Upcoming Encounters Date Type Department Care Team (Late st Contact Info) Description 04/17/2025 3:30 PM EDT Office Visit [facility] - [facility] [address] [facility] [address] [place] [phone] Teri Mosher MD [address] [place] [address] documented as of this encounter Visit Diagnoses Not on filedocumented in this encounter Care Teams Barrel Maker Relationship Specialty Start Date End Date Jeremi Hubbard MD [address] [place] [address] [address] [place] [id number] PCP - General Endocrinology 11/18/13 documented as of this encounter
[2024-11-27] MEDS: gadobutroL 10 ML VIAL IVPUSH (17:54)
== END 2024-11-27 16:09 | disposition home or self-care (01) ==
LOC: HO.MRI 16:08
PROVIDERS: Visit Provider Surgery
DX: Z15.01 Genetic susceptibility to malignant neoplasm of breast (principal); Z15.09 Genetic susceptibility to other malignant neoplasm; Z91.89 Other specified personal risk factors, not elsewhere classified; Z80.3 Family history of malignant neoplasm of breast
CPT/HCPCS: 77049; A9585

== ENCOUNTER → 2024-11-27 16:33 | Outpatient (BNV) | payer OTHER, SELFPAY | PROVIDERS: Visit Provider Internal Medicine | DX: Z15.01 Genetic susceptibility to malignant neoplasm of breast (principal); Z80.3 Family history of malignant neoplasm of breast | CPT/HCPCS: 77049 ==

== ENCOUNTER 2025-05-23 11:20 | Outpatient (AMB) | payer MEDICARE, SELFPAY ==
--- NOTE | 2025-05-23 11:23 | A.OFFVIS_ITS ---
Vital Signs 05/23/25 11:30 Height 5 ft 9 in Weight 249 lb BMI 36.8 BP 127/60 Blood Pressure Location Lt brachial Position Sitting Pulse 64 Intake Visit Reasons: 6 month Breast exam appt Intake Note: Patient is seen in office for 6 month follow up visit, breast exam. Pt c/o: denies any concerns regarding the breast mm:04/23/25 ([facility]) Compliance Intern Required: No Training Assistant: Training Assistant Present Accompanied by: Self / Same As Patient Allergies Biaxin Allergy (Unknown, Uncoded 05/23/25 11:30) Vomiting Medication List - Last Reconciled 05/26/25 by Alex Maya MD albuterol sulfate 90 mcg/actuation inhalation aspirin (Adult Low Dose Aspirin) 81 mg PO DAILY atorvastatin 10 mg PO BEDTIME beclomethasone dipropionate 80 mcg/actuation inhalation blood sugar diagnostic As directed cholecalciferol (vitamin D3) 25 mcg PO DAILY furosemide 20 mg PO DAILY insulin lispro 70 units subcut DAILY insulin syringe-needle U-100 As directed levothyroxine 112 mcg PO DAILY lisinopril 10 mg PO DAILY metoprolol succinate ER 50 mg PO DAILY omeprazole 40 mg PO DAILY venlafaxine ER 37.5 mg PO QAM HPI Comments Details: 65-year-old female patient previous patient of Dr. Fletcher and Dr. Mendez or felt to be high risk for breast cancer due to a strong family history with a Tyrer-Cuzick lifetime risk of breast cancer calculated at 28%. 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 Her family history is significant for her mother developing breast cancer the age of 69, and maternal aunt at the age of 59, and a paternal aunt at the age of 50. 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 Mammogram performed at [facility] on 04/23/2025 reveals no mammographic evidence of malignancy (BI-RADS 1). Her last mammogram 01/12/2024 revealed no mammographic evidence of malignancy (BI-RADS 1). Breast MRI performed on 11/27/2024 at [facility] reveals no MR evidence of malignancy bilateral breasts (BI-RADS 1 bilaterally). She feels well and denies any ongoing breast symptoms. [facility] Medical History Family history of breast cancer Diabetes mellitus type 1 GERD (gastroesophageal reflux disease) Thyroid disease Hypercholesterolemia Surgical History History of appendectomy History of right breast biopsy History of hysterectomy History of bilateral knee arthroplasty Family History Mother Lung cancer Breast cancer Throat cancer Maternal Grandfather Lung cancer Paternal Aunt Breast cancer Maternal Aunt Breast cancer Maternal Aunt Breast cancer Social History Alcohol intake: current Alcohol intake frequency: holidays/special occasions only Patient Tobacco Use Status: Never used Tobacco Female Reproductive History Menstrual Age of Menarche: 11 Review of Systems Const All systems reviewed & are unremarkable except as noted in HPI and below Physical Exam Vital Signs: Last Vital Signs Pulse 64 05/23/25 11:30 BP 127/60 05/23/25 11:30 BMI result Body Mass Index 36.8 Const General: cooperative, no acute distress and well developed Nutritional Appearance: well nourished Orientation/consciousness: patient oriented x3 Limitations: no limitations HEENT Head: Yes normocephalic and Yes atraumatic Ears: hearing grossly normal bilaterally Neck Neck: Yes no lymphadenopathy, Yes trachea midline and Yes supple Chest Other: Left breast:? No skin change, no nipple retraction, no nipple discharge, no palpable mass, no enlarged lymph nodes. Right breast:? No skin change, no nipple retraction, no nipple discharge, no palpable mass, no enlarged lymph nodes Resp Effort & Inspection: normal respiratory effort Auscultation: clear to auscultation bilaterally GI Inspection: Yes normal to inspection Skin General skin exam: no rashes or lesions noted Neuro General: patient oriented x3 Extrem General: Yes no clubbing, cyanosis or edema Assessment & Plan Assessment & Plan (1) Family history of breast cancer: Code(s): Z80.3 - Family history of malignant neoplasm of breast Category: Medical Plan 65-year-old female patient with a strong family history of breast cancer and elevated Tyrer-Cuzick remaining lifetime risk of breast cancer, continues to be followed as part of the high risk breast cancer protocol. Examination today revealed no suspicious findings in either breast. Her most recent mammogram and breast MRIs revealed no suspicious findings as well. 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 She will follow up with GI for pancreatic cancer screening and will follow up in our office in approximately 6 months for routine breast examination. She is welcome to call sooner for any new concerns. Coding Level of Care Code Est Pt Level 3 (89152) Complex EM visit Add On G2211 Diagnoses Family history of breast cancer Z80.3
[2025-05-23 11:30] VITALS: BP 127/60; PULSE 64; BMI 36.8
--- OUTSIDE RECORDS SUMMARY | 2025-05-23 12:30 | XMS_ITS | Data Portability ---
Author Organization [place] [facility] Address [address] [address] Care Team Providers Care Superintendent Greens Name Role Phone JIMI TAYLOR Primary Care Provider Assessment Encounter Date Assessment Date Assessment LastModified by Organization Details LastModified Time 04/09/2025 04/09/2025 James is a pleasan t 65-year-old female who presents today with symmetric sensorineural hearing loss normal downsloping to severe bilaterally. Ear exam is normal with midline Block. The patient has evidence today of significant hearing loss in both ears, as noted above. We discussed that the patient would be an excellent candidate for hearing amplification and discussed its benefits which include improved hearing, potential tinnitus reduction, reduction in the rate of cognitive decline, and reduction in the prevalence of depression or mental health disorders. Otologic examination today does not reveal any contraindications for the use of hearing amplification. The patient would like to pursue this, I will provide them with medical clearance today. We provided them with a list of learning support services director's in the region including our office. [email or web address] Not available 04/09/2025 12:06:01 Plan of Treatment Reminders Order Date Submit Date Provider Last Modified By Organization Details Last Modified Time Details Appointments BOBO Initial Fitting 2024 11:00A M LALY YOO Not available Not available Not available Lab None recorded . Referral None recorded . Procedures None recorded . Surgeries None recorded . Imaging None recorded . Medication Orders None recorded . Patient TargetsNo targets recorded. Patient InstructionsNo instructions recorded. Reason for Referral None Reported. Results Created Date Observation Date Name Description Value Unit Range Abnormal Flag Note LastModifiedBy Organization Detail LastModifiedTime 04/09/20 25 audio gram No observ ation record ed. BARCODE Not Available 2024 15:46:46 Result Notes None recorded. Problems Name Problem SNOMED Code Status Onset Date Resolution Date Notes Provider Name and Address Organization Details Recorded Time Gastroeso phageal reflux disease without esophagit is 075873231 Active 2017 Gastro-eso phageal reflux disease without esophagiti s; Note: Date Diagnosed: 05/11/2018 3:44 PM (K21.9) Not Available [facility] 4 02:13:07 Respirato ry finding 535973860 Active 2017 Choking sensation; Note: Date Diagnosed: 05/11/2018 3:43 PM (R09.89) Not Available [facility] 4 02:14:14 Cardiovas cular finding 948999865 Active 2017 Choking sensation; Note: Date Diagnosed: 05/11/2018 3:43 PM (R09.89) Not Available [facility] 4 02:14:14 Wheezing 38227958 Active 2017 Wheezing; Note: Date Diagnosed: 05/11/2018 3:43 PM (R06.2) Not Available [facility] 4 02:15:10 Uncomplic ated moderate persisten t asthma 999905212 Active 2017 Moderate persistent asthma NOS; Note: Date Diagnosed: 05/11/2018 3:44 PM (J45.40) Not Available [facility] 4 02:15:03 Bilateral earache 668965165 Active 2024 Nicolas Meza, DO [address] [address], [place], [address] , [facility] - [facility] 5 08:54:40 Sensorine ural hearing loss of bilateral ears 215071848 Active 2024 LALY YOO [address] [address], [place], [address] , [facility] 5 11:43:54 Problem Notes None recorded. Procedures Surgical History Date Name Laterality Status Provider Name and Address Organization Details Recorded Time 04/09/20 25 Comp Audio with Tymps - 84361 & 53511 completed LALY YOO [address] [facility] [address], [place], [address], [place] - [facility] 04/09/2025 11:43:47 hysterectomy completed [facility] 04/09/2025 11:53:57 appendectomy completed [facility] 04/09/2025 11:54:06 Imaging Results None recorded. Procedure Notes None recorded. Medical Equipment None Reported. Allergies Allergen ID Allergen Name Allergen Category Reaction Reaction Severity Criticality Documentation Date Start Date Code Code System Note Provider Name and Address Organization Details Recorded Time Biaxin medicatio n nausea Not available Not available 01/02/2024 9 RxNorm React ion: vomit ing;; Not Available [facility] 00:48:36 Medications Name Sig Start Date Stop Date Status Note LastModified by Organization Details LastModified Time amoxicill in 500 mg capsule TAKE 1 CAPSULE BY MOUTH THREE TIMES DAILY 03/25 completed Not Available Not Available Not Available fluticaso ne 250 mcg-salme terol 50 mcg/dose blistr powdr for inhalatio n inhale 1 puff by mouth twice daily RINSE MOUTH OUT WITH WATER AFTER USE active Not Available Not Available No t Available acetic acid 2 % ear solution instill 3 DROPS into BOTH ears THREE TIMES DAILY needed active Not Available Not Available No t Available venlafaxi ne ER 75 mg capsule,e xtended release 24 hr TAKE 1 CAPSULE BY MOUTH DAILY active Not Available Not Available No t Available atorvasta tin 20 mg tablet TAKE 1 TABLET BY MOUTH every DAY AT BEDTIME active Not Available Not Available No t Available atorvasta tin 10 mg tablet 04/09 completed Medicati on ID: [id number] D uration Value: 30 Brand Name: atorvast atin Sen d Method: E-Prescr ibed Sub s Allowed: subs OK Medic ationGen ericName : atorvast atin Not Available Not Available Not Available azithromy arnold 250 mg tablet TAKE 2 TABLETS BY MOUTH TODAY THEN TAKE 1 TABLET DAILY FOR THE NEXT 4 DAYS 04/09 completed Not Available Not Available Not Available metoprolo l succinate ER 50 mg tablet,ex tended release 24 hr TAKE 1 TABLET BY MOUTH DAILY active Not Available Not Available No t Available hydrocodo ne 5 mg-acetam inophen 325 mg tablet TAKE 1 TABLET BY MOUTH EVERY 6 HOURS NEEDED FOR PAIN active Not Available Not Available No t Available venlafaxi ne ER 150 mg capsule,e xtended release 24 hr TAKE 1 CAPSULE BY MOUTH ONCE DAILY directed active Not Available Not Available No t Available omeprazol e 40 mg capsule,d elayed release TAKE 1 CAPSULE BY MOUTH DAILY active Not Available Not Available No t Available Humalog U-100 Insulin 100 unit/mL subcutane ous solution 2016 active Medicati on ID: [id number] D uration Value: 28 Brand Name: Humalog U-100 Insulin Send Method: E-Prescr ibed Sub s Allowed: subs OK Speci al Instruct ion: INJECT 70 UNITS UNDER THE SKIN DAILY DIRECTED WITH PUMP Med icationG enericNa me: Humalog U-100 Insulin Not Available Not Available Not Available lisinopri l 10 mg tablet TAKE 1 TABLET BY MOUTH ONCE DAILY directed active Not Available Not Available No t Available furosemid e 20 mg tablet TAKE 1 TABLET BY MOUTH ONCE DAILY active Not Available Not Available No t Available Novolog U-100 Insulin aspart 100 unit/mL subcutane ous solution inject 70 units under the skin once daily with insulin pump. active Not Available Not Available No t Available levothyro xine 112 mcg tablet TAKE 1 TABLET BY MOUTH DAILY active Not Available Not Available No t Available oxycodone 5 mg tablet TAKE 1 TABLET BY MOUTH EVERY 6 HOURS NEEDED FOR PAIN 04/09 completed Not Available Not Available Not Available Flovent HFA 110 mcg/actua tion aerosol inhaler inhale 2 PUFFS BY MOUTH TWICE DAILY active Not Available Not Available No t Available Accu-Chek Guide test strips USE 1 Strip TO SKIN 4 times a day DIRECTED active Not Available Not Available No t Available aspirin 81 mg capsule Take 1 capsule every day by oral route. active Not Available Not Available No t Available Paxlovid 300 mg (150 mg x 2)-100 mg tablets in a dose pack TAKE 3 TABLETS BY MOUTH TWICE A DAY FOR 5 DAYS 04/09 completed Not Available Not Available Not Available Vitals Date Recorded Body height Body mass index (BMI) Body weight Provider Name and Address Organization Details Last Updated DateTime 04/09/2025 172.72 cm 38 kg/m2 543169.09 g MICHELLE RAMIREZ [place] - [facility] 04/09/2025 11:51:49 Social History None recorded. Functional Status None recorded. Mental Status None recorded. Family History Nothing Reported. Medical History No medical history recorded. Gynecological HistoryNo gynecological history recorded. Obstetrics History GPAL:G 0 P 0 0 0 0 Past Encounters Encounter ID Performer Location Encounter Start Date Encounter Closed Date Diagnosis/Indication Diagnosis SNOMED-CT Code Diagnosis ICD10 Code Diagnosis IMO Codes Diagnosis Note [id number] Nicolas Meza DO [facility] [address] [address] 04/09/2025 11:04:19 04/09/2025 12:10:19 Sensorineural hearing loss of bilateral ears 277336345 H90.3 [id number] Audiologic al evaluation results: Right ear: Normal sloping to severe sensorineu ral hearing loss with excellent word recognitio n. Left ear: Normal sloping to severe sensorineu ral hearing loss with good word recognitio n. Tympanomet ry: Right Ear:Type A Left Ear:Type A Health Concerns Section Related Observation LastModified by Organization Detai ls LastModified Time None Recorded Concern Status LastModified by Organization Details LastModified Time None Recorded Advance Directives Directive None Recorded Payers Insurance Date Sequence Insurance Name Policy Number Policy Walter Covered Member ID Walter Member ID Guarantor Name 04/09/2025 1 [facility] (POS) Pepper Gonsalez Trell [id number] Pepper Cai 05/15/2025 1 *SELF PAY* Da елена Cai 05/15/2025 1 [place] Pepper Sunshine Trell [id number] Pepper Cai 05/21/2025 1 [place]MEDICARE REPLACEMENT HMO) [id number] Pepper Cai [id number] Pepper Cai Notes Date Note Type Note Provider Name and Address Organization Details Recorded Time 04/09/2025 text/html ROS as noted in the HPI Pepper is a 65F who presents today with bilateral ear pain and hearing loss. Its been progressive over the last few years. Turnin she endorses turning the volume up more recently and her kids are putting close captions on the TV. She has difficulty with crowd noise or in crowded environments. Nicolas Meza, DO [address] [facility],[address] [address], [place], [address], [facility] - [facility] 04/09/2025 12:06:16 OBGyn Episode No OBEpisode recorded.
--- OUTSIDE RECORDS SUMMARY | 2025-05-23 12:30 | XMS_ITS | Clinical Summary ---
Author Organization [address] [place] [address] Address [address] [place] [address] Phone Care Team Providers Care Algebra Tutor Name Role Phone Jeremi Hubbard MD Primary Care Provider [phone] Allergies Active Allergy Reactions Criticality Noted Date Comments Clarithromycin 10/17/2022 Medications insulin NPH-insulin regular (HumuLIN 70/30 U-100 Insulin) 100 unit/mL (70-30) injection Inject into the skin daily. Active atorvastatin (LIPITOR) 40 mg tablet Take 1 Tablet by mouth daily. Active levothyroxine (SYNTHROID, LEVOTHROID) 112 mcg tablet 112 mcg daily. Active lisinopriL (PRINIVIL,ZESTR IL) 10 mg tablet Take 10 mg by mouth daily. Active furosemide (LASIX) 20 mg tablet Take 20 mg by mouth daily. Active metoprolol succinate (TOPROL-XL) 50 mg 24 hr tablet Take 0.5 tablets (25 mg total) by mouth 1 (one) time each day. Active omeprazole (PriLOSEC) [address] capsule Take 40 mg by mouth daily. Active venlafaxine (EFFEXOR) 75 mg tablet Take 75 mg by mouth daily. Active aspirin 81 mg chewable tablet Take 81 mg by mouth daily. Active cholecalciferol (VITAMIN D-3) 25 mcg (1,000 unit) capsule Take by mouth. Active Active Problems Problem Noted Date Diagnosed Date Chronic heart failure with p reserved ejection fraction (CMS/HCC V24, CMS/HCC V28) 05/14/2025 Anxiety disorder 11/17/2023 CAD (coronary artery disease) 10/17/2022 Overview (05/14/2025): - Presumed diagnosis based on stress testing [...] mild ischemia at the basal lateral wall -Exercise stress echo (11/12/24): Interpretation Summary There was normal left ventricular size and systolic function on resting imaging. There was normal regional wall motion with an ejection fraction of 55 to 60%. Resting pulmonary artery systolic pressure was measured at 24 mmHg and was within normal limits. Stress ECG was non-diagnostic due to baseline ECG abnormalities. Exercise stress test was performed. Patient exercised for 4 minutes and 3 seconds achieving 87% of max predicted heart rate and a 6.5 MET workload. Exercise capacity was below average for age and gender. Normal heart rate and blood pressure response. The test was stopped because the patient experienced shortness of breath. The patient requested the test to be stopped. The patient reported dyspnea during the stress test. No chest pain. Dyspnea resolved quickly in recovery. ECG portion was nondiagnostic due to baseline abnormalities. All wall segments augmented normally with stress. The left ventricular cavity did not dilate with stress. Negative exercise stress echocardiogram at a diagnostic heart rate without evidence of ischemia or infarction. Asthma 03/01/2022 Depressive disorder 03/01/2022 Hypothyroidism 03/01/2022 Hyperlipidemia 02/22/2022 Overview (10/17/2024): DX:Hyperlipidemia Last Assessment [...] to see if there is sleep apnea. Type 1 diabetes mellitus ([facility] V24, [facility] V 28) 05/17/2019 Gastroesophageal reflux disease without esophagi tis 05/11/2018 Overview (05/14/2025): Gastro-esophageal reflux disease without esophagitis; Note: Date Diagnosed: 05/11/2018 3:44 PM (K21.9) Encounters Date Type Department Care Team Description 04/17/2025 3:30 PM EDT Office Visit [facility] [address] [place] [address] Teri Elizabeth MD Coronary artery disease, unspecified vessel or lesion type, unspecified whether angina present, unspecified whether [place] or transplanted heart (Primary Dx); Mixed hyperlipidemia; Primary hypertension; Chronic heart failure with preserved ejection fraction ([facility] V24, [facility] V28) from Last 3 Months Medical History Medical History Date Comments Diabetes mellitus type 2, co ntrolled, with complications (CMS/[facility] V24, [facility] V28) DX:Diabetes mellitus type 2, controlled, with complications (HCC) Family history of cardiovasc ular disease DX:Family [...] Sign Reading Time Taken Comments Blood Pressure 120/68 04/17/2025 3:39 PM EDT Pulse 57 04/17/2025 3:39 PM EDT Temperature - - Respiratory Rate - - Oxygen Saturation 99% 04/17/2025 3:39 PM EDT Inhaled Oxygen Concentration - - Weight 114 kg (251 lb) 04/17/2025 3:39 PM EDT Height 172.7 cm (5' 8 ) 04/17/2025 3:39 PM EDT Body Mass Index 38.16 04/17/2025 3:39 PM EDT Plan of Treatment Health Maintenance Due Date Last Done Comments Breast Cancer Screening 1960 Colorectal Cancer Screening: Colonoscopy 1960 Diabetes: Annual GFR (Glomerular Filtration Rate) 1960 Diabetes: Annual Foot Exam 02/17/1970 Diabetes: Annual Retina Eye Exam 02/17/1970 DTaP,Tdap,and Td Vaccines (1 - Tdap) 02/17/1979 Pneumococcal Vaccine: 50+ Years (1 of 2 - PCV) 02/17/1979 Cervical Cancer Screening: Pap Smear 02/17/1981 Zoster Vaccines (1 of 2) 02/17/2010 RSV Immunization Adult Patients (1 - Risk 60-74 years 1-dose series) 2020 Cholesterol Screening (Lipid Panel) 07/30/2022 Hepatitis C Screening 07/30/2022 Medicare Annual Wellness Visit 07/30/2022 Osteoporosis Screening (Bone Density Screening) 07/30/2022 Social Influencers of Health Screening 07/30/2022 Hypertension/CHF/CAD Annual BMP Blood Test 07/31/2022 Depression Screening 08/21/2024 Falls Risk Assessment 02/17/2025 Diabetes: Annual Urine Albumin-Creatinine Ratio (uACR) 04/17/2025 Diabetes: Blood Sugar Control Test (HGBA1C) 04/17/2025 COVID-19 Vaccine ( season) 2025 06/10/2024, 12/03/2021, 06/24/2021, Additional history exists Influenza Vaccine (#1) 2025 , 07/03/2023, 06/10/2021 HIB Vaccines Aged Out No longer [...] Procedure Name Priority Date/Time Associated Diagnosis Comments ECG 12-LEAD Routine 04/17/2025 3:45 PM EDT Coronary artery disease, unspecified vessel or lesion type, unspecified whether angina present, unspecified whether [place] or transplanted heart from Last 3 Months Results * ECG 12 lead (04/17/2025 3:45 PM EDT) Ventricular Rate ECG 57 BPM GEMUSE Atrial Rate 57 BPM GEMUSE P-R Interval 136 ms GEMUSE QRS Duration 78 ms GEMUSE Q-T Interval 428 ms GEMUSE QTc 416 ms GEMUSE P Wave Rogers 62 degrees GEMUSE R Rogers 32 degrees GEMUSE T Rogers 61 degrees GEMUSE ECG Interpretation Sinus bradycardia Otherwise normal ECG No previous ECGs available Confirmed by TERI ELIZABETH ([id number]) on 05/14/2025 11:36:52 AM GEMUSE 04/17/2025 3:45 PM EDT 05/14/2025 11:36 AM EDT us Teri Elizabeth MD ECG ORDERABLES Final Result GEMUSE from Last 3 Months Insurance MEDICARE Care Teams Algebra Tutor Relationship Specialty Start Date End Date Jeremi Hubbard MD [address] [place] [address] [address] [place] [address] PCP - General Endocrinology 11/18/13
--- OUTSIDE RECORDS SUMMARY | 2025-05-23 12:30 | XMS_ITS | Continuity of Care Document ---
Author Organization [facility] [address] [place] [address] Phone [phone] Care Team Providers Care Marine Extension Agent Name Role Phone Jeremi Hubbard M.D. Care Team Information Re ceiver [phone] Problems Active Problems Provider Date Type 1 [...] Social History Type Date Description Comments Sex Female Sex Unknown Lives With Daughter ETOH Use Rarely consumes alcohol Tobacco Use Start: Unknown Patient has never smoked Smoking Status Reviewed: 02/25/25 Patient has never sm oked Allergies and adverse reactions Active Allergies Criticality Reaction Severity Comments Date Augmentin Unable to assess criticality 03/28/2022 Medications Active Medications SIG Qnty Indications Order ing Provider Date Accu-Chek Guide TestStrips Use 1 Strip To Skin 4 times a day as Directed 600units Jeremi Hubbard M.D. 05/21/2025 Wixela [id number]/Act Aerosol inhale 1 puff by mouth twice daily 3units Jeremi Hubbard M.D. 07/17/2024 Venlafaxine HCL ER75mg Caps ER 24HR Take 1 Capsule By Mouth Daily 30caps Jeremi Hubbard M.D. 05/29/2024 Venlafaxine HCL [id number] Caps ER 24HR Take 1 Capsule By Mouth Once Daily as directed 90caps Jeremi Hubbard M.D. 04/09/2024 Qllamgo498Fcfk/ML Solution inject 70 units under the skin once daily with insulin pump. 70units E10.9 Jeremi Hubbard M.D. 11/21/2023 Hydrocortisone2.5% Cream apply twice a day to affected area as needed 60gm Jeremi Hubbard M.D. 05/30/2023 Albuterol Sulfate IDZ099(90Base) mcg/Act Aerosol inhale 2 Puffs By Mouth 4 Times Daily as Needed 8.5units Jeremi Hubbard M.D. 03/02/2022 Flovent SKB006zuo/Act Aerosol 2 puffs twice a day 12gm Jeremi Hubbard M.D. 03/02/2022 Levothyroxine Xenjwf691cyy Tablets Take 1 Tablet By Mouth Daily 90tabs Jeremi Hubbard M.D. 01/27/2022 Metoprolol Succinate ER50mg Tablets ER 24HR Take 1 Tablet By Mouth Daily 90tabs Jeremi Hubbard M.D. 01/27/[address] Take 1 Capsule By Mouth Daily 90caps Jeremi Hubbard M.D. 01/27/2022 Xfvewaccvi30gm Tablets Take 1 Tablet By Mouth Once Daily as directed 90tasrinath Hubbard M.D. 01/27/2022 Atorvastatin Qiypcgd22oc Tablets Take 1 Tablet By Mouth every Day AT Bedtime 90tabs Jeremi Hubbard M.D. 01/27/2022 Ifrevmgsmg49rg Tablets Take 1 Tablet By Mouth Once Daily 90tabs Jeremi Hubbard M.D. 01/27/2022 Vital Signs Date Vital Result Comment 02/25/2025 2:40pm BP Systolic 120 mmHg BP Diastolic 80 mmHg Heart Rate 72 /min Height 67.5 inches 5'7.50 Weight 254.00 lb BMI (Body Mass Index) 39.2 kg/m2 Results Test Acquired Date Facility Test Result H/L Range Note Hemoglobin A1c 02/25/2025 Inhouse Hemoglobin A1c 6.9 Glucose Fingerstick 02/25/2025 Inhouse Glucose Fingerstick 96 Hemoglobin A1c 07/17/2024 Inhouse Hemoglobin A1c 7.0% Glucose Fingerstick 07/17/2024 Inhouse Glucose Fingerstick 160 Hemoglobin A1c 04/09/2024 Inhouse Hemoglobin A1c 6.9% [...] Comment: TNP Urinalysis Complete 11/22/2023 [facility] Specific [place] 1.016 1.005-1.0 30 pH 6.5 5.0-7.5 Urine-Color [...] 1.4-7.0 Lymphs (Absolute) 1.1 x10E3/uL 0.7-3.1 Monocytes(Absol major) 0.3 x10E3/uL 0.1-0.9 Eos (Absolute) 0.0 x10E3/uL [...] Estab. Alb/Creat Ratio 3 mg/gcreat 0-29 3 Glucose Fingerstick 10/04/2023 Inhouse Glucose Fingerstick 194 Hemoglobin A1c 10/04/2023 Inhouse Hemoglobin A1c 7.2% Hemoglobin A1c 05/03/2023 Inhouse Hemoglobin A1c 8.0% Glucose Fingerstick 05/03/2023 Inhouse Glucose Fingerstick 154 Hemoglobin A1c 10/31/2022 [facility] Hemoglobin A1c 7.2 % High (4.0-5.6) 4 Glucose Fingerstick 10/31/2022 Inhouse Glucose Fingerstick 172 Hemoglobin A1c 10/31/2022 Inhouse Hemoglobin A1c 7.4% Complete Abc With Diff 10/31/2022 [facility] WBC 5.9 K/MM3 (4.0-11.0 [...] K/MM3 (1.3-7.0) Lymph # 1.3 K/MM3 (0.8-3.1) [place]# 0.4 K/MM3 (0.4-0.9) Eo # 0.1 K/MM3 (0.0-0.4) Baso # 0.0 K/MM3 (0.0-0.1) Abs. Imm Gran 0.0 K/MM3 Neut 67.6 % (44-76) Lymph 22.2 % (15-43) Monocyte 7.0 % (4.5-10.5 ) Eo 2.2 % (0-6) Baso 0.7 % (0-2) Imm Gran 0.3 % TSH With Reflex To FT4 10/31/2022 [facility] TSH With Reflex To FT4 3.78 uIU/mL (0.4-4.2) Lipid Panel 10/31/2022 [facility] Cholesterol, Total 155 mg/dL (<200) Triglyceride 103 mg/dL (<150) HDL Chol 63 mg/dL (>39) LDL Cholesterol, Calculated 71 mg/dL (0-130) Non HDL Cholesterol (Calc) 92 mg/dL (<160) Culture Urine 10/31/2022 [facility] Specimen Description URINE Special Requests NONE Culture NO GROWTH Report Status FINAL 11/02/2022 5 Comprehensive Metabolic Panl 10/31/2022 [facility] Glucose 124 mg/dL High [...] (0-33) Estimated GFR Creatinine 70 ML/MIN/1.73 M2 6 Urinary Microalbumin 10/31/2022 [facility] Micro-Albumin <12.0 mg/L (<20) 7 Malb/Creat Ratio Unable to calcul <SEE NOTE> MG/GM (0-20) 8 Urine Creat For Micro Albumin 22.1 mg/dL Urinalysis Complete 10/31/2022 [facility] Appear/Color COLORLESS 9 SP. [place] 1.007 (1.002-1. 030) Urine PH 6.0 (5.0-8.0) Urine Albumin NEGATIVE (Neg) Urine Glucose NEGATIVE (Neg) Urine Ketones NEGATIVE (Neg) Urine Bilirubin NEGATIVE (Neg) Urine Hemoglobin NEGATIVE (Neg) Urine Nitrite NEGATIVE (Neg) Urine Leukocyte NEGATIVE (Neg) Urobilinogen NORMAL mg/dL (Norm) Urine WBCs <1 /HPF (0-5) Urine RBCs 1 /HPF (0-3) Mucus SLIGHT /LPF Squamous Epith <1 /HPF (0-8) Hyaline Cast 1 LPF (0-2) Glucose Fingerstick 07/12/2022 Inhouse Glucose Fingerstick 161 [...] 30 - 300 Severely increased: >300 4 MONITORING: In known diabetic patients, hemoglobin A1c targets should be discussed with health care provider. DIAGNOSTIC USE: The [place] Diabetes Association (ADA) and the World Health [...] Research and Education Volume 43, Supplement 1 5 FINAL 11/02/2022 6 Creatinine based est imated glomerular filtration (eGFR) in adults is calculated using the National Kidney Foundation recommended 2020 CKD-EPI equation. Estimates GFR from serum creatinine, age and sex. 7 The urine microalbum in test is designed to monitor renal function. When screening for Bence Garcia proteinuria, urine electrophoresis is recommended. 8 Unable to calculate 9 CLEAR Procedures Date Code Description Status 07/17/2024 71840 Glucose Monitoring Interpeta tion And Report Completed 04/09/2024 23633 Glucose Monitoring Interpeta tion And Report Completed 01/05/2024 52870 Glucose Monitoring Interpeta tion And Report Completed 10/04/2023 74694 Glucose Monitoring Interpeta tion And Report Completed 05/03/2023 20014 Glucose Monitoring Interpeta tion And Report Completed 10/31/2022 11580 Glucose Monitoring Interpeta tion And Report Completed 03/28/2022 95054 Glucose Monitoring Interpeta tion And Report Completed Medical Devices Description No Information Available Encounters Type Date Location Provider Dx Diagnosis Office Visit 02/25/2025 2:30p Main Office Jeremi Hubbard M.D. E10.9 Type 1 diabetes mellitus without complications Assessments Date Code Description Provider 02/25/2025 E10.9 Type 1 diabetes mellitus without complications Jeremi Hubbard M.D. Plan of Treatment Future Appointment(s):* 06/04/2025 10:15 am - Jeremi Hubbard M.D. at Main Office 02/25/2025 - Jeremi Hubbard M.D.* E10.9 Type 1 diabetes mellitus without complications Functional Status Description No Information Available Mental Status Description No Information Available Referrals Refer to Dr Reason for Referral Status Appt Deandre e [facility] Stress Test Closed [address] [place] [address] [place] [address] [phone] [facility] CORONARY ARTERY Closed 01/01/[address] [place] [address] [address] [place] [address] [phone] Kuhs Gonzalez M.D. TYPE 2 DIABETES Closed 12/21 [address] [place] [address] [phone] [facility] Closed [address] [facility], [address] [place] [address] [phone] [facility] [address] [place] [address] [phone] Kush Gonzalez M.D. Closed [address] [place] [address] [phone] Anderson Waterman MD Closed [address] [place] [address] [phone] [facility] RISK OF BREAST CANCER Closed [address] [place] [address] [phone]
== END 2025-05-23 11:46 | disposition home or self-care (01) ==
LOC: HO.HGS 11:21
PROVIDERS: PCP Internal Medicine Endocrinology, Diabetes & Metabolism; Visit Provider Surgery
DX: Z80.3 Family history of malignant neoplasm of breast (principal)
CPT/HCPCS: 99213; G2211

== ENCOUNTER → 2025-05-23 11:20 | Outpatient (BNVA) | payer MEDICARE, SELFPAY | PROVIDERS: PCP Internal Medicine Endocrinology, Diabetes & Metabolism; Visit Provider Surgery | DX: Z12.31 Encounter for screening mammogram for malignant neoplasm of breast (principal); Z85.3 Personal history of malignant neoplasm of breast | CPT/HCPCS: 99212 ==